=== PATIENT | male | born 1985 | race Caucasian/White ===

== ENCOUNTER 2019-06-10 07:25 | Day surgery (SDC) | payer OTHER ==
[~2019-06-10] VITALS: Ht 180.3 cm; Wt 86.2 kg
[2019-06-10] MEDS ORDERED: MIDAZOLAM 2 MG/2 ML VIAL ONE (10:25)
[2019-06-10] MEDS ORDERED: fentaNYL 0.05 MG/ML VIAL ONE (10:25)
[2019-06-10] MEDS ORDERED: MIDAZOLAM 2 MG/2 ML VIAL IVP ONE (11:15)
== END 2019-06-10 11:00 | disposition home or self-care (01) ==
LOC: MOR 07:25 → MMU 07:33 → MOR 11:00
PROVIDERS: ATTEND Internal Medicine Gastroenterology
DX: K21.9 Gastro-esophageal reflux disease without esophagitis (principal); R14.0 Abdominal distension (gaseous)
CPT/HCPCS: 43235; J2250; J3010